=== PATIENT | female | born 1935 | race Caucasian/White ===

== ENCOUNTER 2016-08-29 01:55 | Emergency (ER) | payer MEDICARE, BC ==
[~2016-08-29] VITALS: Ht 157.5 cm; Wt 49.9 kg
--- NOTE | 2016-08-29 02:05 | NUR ---
PT BIB WITH A C/O PILL STUCK IN THROAT. PT IS SPEAKING IN FULL SENTENCES, NO SOB NOTED, AND TOLERATING PO WELL. PT STATED THAT SHE FEELS LIKE THERE IS SOMETHING STUCK IN HER THROAT WHEN SHE SWALLOWS.
[2016-08-29] MEDS ORDERED: LIDOCAINE 4% PF AMPUL 40 MG/ML AMPUL ONE (02:22)
[2016-08-29] MEDS ORDERED: LIDOCAINE SOLN 4% 50 ML BOTTLE TP ONE (02:30)
[2016-08-29] MEDS ORDERED: LIDOCAINE VISCOUS 2% UD 15 ML UDC MM ONE (02:30)
[2016-08-29] MEDS ORDERED: LIDOCAINE VISCOUS 2% UD 15 ML UDC ONE (02:32)
--- NOTE | 2016-08-29 02:55 | NUR ---
RT IS AT THE BEDSIDE WITH DR. PEREZ. LARYNGOSCOPE AND MCGILLS ARE AT THE BEDSIDE.
--- NOTE | 2016-08-29 02:59 | NUR ---
PROCEDURE IS DONE. NO FOREIGN BODY NOTED.
[2016-08-29 03:53] VITALS: BP 138/82
== END 2016-08-29 03:54 | disposition home or self-care (01) ==
LOC: ER 01:57
DX: R09.89 Other specified symptoms and signs involving the circulatory and respiratory systems (principal); M19.90 Unspecified osteoarthritis, unspecified site; Y92.89 Other specified places as the place of occurrence of the external cause
CPT/HCPCS: 70360; 99284; A4606; J3490; Z7610